=== PATIENT | male | born 1990 | race Caucasian/White ===

== ENCOUNTER 2020-09-22 22:49 | Observation (INO) | payer BC ==
[2020-09-22] MEDS ORDERED: Acetaminophen 500 MG TAB ONE (23:07)
[2020-09-22] MEDS ORDERED: Ibuprofen 800 MG TAB ONE (23:09)
[2020-09-22 23:18] LABS: Mean Corpuscular HGB CONC 35.5 g/dL (32.0-36.0); Mean Corpuscular Hemoglobin 31.1 pg (27.0-31.0); Mean Corpuscular Volume 87.7 fL (78.0-98.0); Platelet Count 194 thou/uL (130-400); RBC Distribution Width 11.6 % (11.5-14.5); Red Blood Cell (RBC) Count 4.82 mill/uL (4.70-6.10); White Blood Cell (WBC) Count 7.1 thou/uL (4.8-10.8)
[2020-09-22 23:39] LABS: Anion Gap 16 mmol/L (10-20); BUN (Urea Nitrogen) 13 mg/dL (8.9-20.6); Calc. Creatinine Clearance 0 mL/min (70-130); Carbon Dioxide 20 mmol/L (22-29); Chloride 98 mmol/L (98-107); Potassium 3.6 mmol/L (3.5-5.1); Sodium 130 mmol/L (136-145)
[2020-09-22 23:40] LABS: ALT (SGPT) 153 U/L (8-55); AST (SGOT) 141 U/L (5-34); Albumin 4.2 g/dL (3.5-5.0); Alkaline Phosphatase 53 U/L (40-110); Bilirubin, Total 0.8 mg/dL (0.2-1.2); Calcium 8.6 mg/dL (7.8-10.44); Globulin 3.1 g/dL (2.4-3.5); Glucose 98 mg/dL (70-105); Protein, Total 7.3 g/dL (6.0-8.3)
[2020-09-22 23:41] LABS: Band 25 % (5-11); Lymphocytes 9 % (21-51); MDiff Complete? YES; Neutrophil 66 % (42-75)
[2020-09-23] MEDS ORDERED: Vancomycin 1 GM/200 ML BAG ONE (00:03)
[2020-09-23] MEDS ORDERED: Cefepime 2 GM VIAL ONE (00:03)
[2020-09-23 02:18] LABS: Lactic Acid 1.5 mmol/L (0.5-2.2)
[2020-09-23] MEDS ORDERED: Ondansetron ODT 4 MG TAB PO PRN (02:22)
[2020-09-23] MEDS ORDERED: Acetaminophen 325 MG TAB PO PRN (02:59)
[2020-09-23 04:05] VITALS: BMI 34.3
[2020-09-23] MEDS: Lactated Ringer's 1,000 ML IV SCH ×3 (04:07→19:45)
[2020-09-23] MEDS: guaiFENesin ER 600 MG TAB PO SCH ×2 (04:07→22:06)
[2020-09-23] MEDS ORDERED: Chloraseptic Spray 180 ml Bottle PO PRN (04:12)
[2020-09-23] MEDS: Ibuprofen 800 MG TAB PO PRN ×2 (05:16→23:03)
[2020-09-23 05:27] LABS: #Lymphocytes 1.2 thou/uL (1.20-3.40); #Monocytes 0.3 thou/uL (0.11-0.59); #Neutrophils 4.4 thou/uL (1.40-6.50); %Eosinophils 0.1 % (0.0-10.0); %Lymphocytes 19.9 % (21.0-51.0); %Monocytes 4.3 % (0.0-10.0); %Neutrophils 75.7 % (42.0-75.0); Hemoglobin 13.6 g/dL (14.0-18.0); Mean Corpuscular HGB CONC 34.8 g/dL (32.0-36.0); Mean Corpuscular Hemoglobin 30.6 pg (27.0-31.0); Mean Platelet Volume 7.7 fL (7.4-10.4); Platelet Count 171 thou/uL (130-400); RBC Distribution Width 11.5 % (11.5-14.5); Red Blood Cell (RBC) Count 4.44 mill/uL (4.70-6.10); White Blood Cell (WBC) Count 5.8 thou/uL (4.8-10.8)
[2020-09-23 05:49] LABS: ALT (SGPT) 135 U/L (8-55); AST (SGOT) 124 U/L (5-34); Albumin 3.6 g/dL (3.5-5.0); Alkaline Phosphatase 44 U/L (40-110); Anion Gap 12 mmol/L (10-20); BUN (Urea Nitrogen) 11 mg/dL (8.9-20.6); Bilirubin, Total 0.8 mg/dL (0.2-1.2); Calc. Creatinine Clearance 155 mL/min (70-130); Calcium 8.1 mg/dL (7.8-10.44); Carbon Dioxide 21 mmol/L (22-29); Chloride 102 mmol/L (98-107); Globulin 2.8 g/dL (2.4-3.5); Glucose 97 mg/dL (70-105); Potassium 3.2 mmol/L (3.5-5.1); Protein, Total 6.4 g/dL (6.0-8.3); Sodium 132 mmol/L (136-145)
[2020-09-23] MEDS: Enoxaparin Sodium 40 MG/0.4 ML SYRINGE SC SCH (08:17)
[2020-09-23] MEDS: Benzonatate 100 MG CAP PO SCH ×3 (08:17→22:06)
[2020-09-23] MEDS: Dexamethasone 4 MG TAB PO SCH (08:17)
[2020-09-23] MEDS ORDERED: Potassium Chloride 20 MEQ TAB PO SCH (08:52)
[2020-09-23] MEDS ORDERED: guaiFENesin/Codeine 200 mg/20 mg 10 ml Cup PO PRN (17:49)
[2020-09-23] MEDS ORDERED: Melatonin 3 MG TAB PO PRN (21:47)
[2020-09-24] MEDS: Lactated Ringer's 1,000 ML IV SCH (03:11)
[2020-09-24 05:41] LABS: #Lymphocytes 0.8 thou/uL (1.20-3.40); #Monocytes 0.3 thou/uL (0.11-0.59); #Neutrophils 4.6 thou/uL (1.40-6.50); %Basophils 0.3 % (0.0-1.0); %Eosinophils 0.2 % (0.0-10.0); %Lymphocytes 14.2 % (21.0-51.0); %Monocytes 5.6 % (0.0-10.0); %Neutrophils 79.6 % (42.0-75.0); Mean Corpuscular HGB CONC 33.7 g/dL (32.0-36.0); Mean Corpuscular Hemoglobin 30.4 pg (27.0-31.0); Mean Corpuscular Volume 90.2 fL (78.0-98.0); Mean Platelet Volume 7.7 fL (7.4-10.4); Platelet Count 199 thou/uL (130-400); RBC Distribution Width 11.9 % (11.5-14.5); Red Blood Cell (RBC) Count 4.62 mill/uL (4.70-6.10); White Blood Cell (WBC) Count 5.8 thou/uL (4.8-10.8)
[2020-09-24 06:05] LABS: ALT (SGPT) 116 U/L (8-55); AST (SGOT) 92 U/L (5-34); Albumin 3.7 g/dL (3.5-5.0); Alkaline Phosphatase 46 U/L (40-110); Anion Gap 11 mmol/L (10-20); BUN (Urea Nitrogen) 9 mg/dL (8.9-20.6); Bilirubin, Total 0.8 mg/dL (0.2-1.2); Calc. Creatinine Clearance 170 mL/min (70-130); Calcium 8.6 mg/dL (7.8-10.44); Carbon Dioxide 25 mmol/L (22-29); Chloride 100 mmol/L (98-107); Globulin 2.9 g/dL (2.4-3.5); Glucose 99 mg/dL (70-105); Potassium 3.7 mmol/L (3.5-5.1); Protein, Total 6.6 g/dL (6.0-8.3); Sodium 132 mmol/L (136-145)
[2020-09-24] MEDS: guaiFENesin ER 600 MG TAB PO SCH (08:19)
[2020-09-24] MEDS: Enoxaparin Sodium 40 MG/0.4 ML SYRINGE SC SCH (08:19)
[2020-09-24] MEDS: Benzonatate 100 MG CAP PO SCH ×2 (08:19→14:00)
[2020-09-24] MEDS: Dexamethasone 4 MG TAB PO SCH (08:19)
[2020-09-24 15:35] VITALS: BP 112/67; TEMP 97.7
== END 2020-09-24 16:40 | disposition home or self-care (01) ==
LOC: ERS 22:49 → 2SW 09-23 00:20
PROVIDERS: ADMIT Student in an Organized Health Care Education/Training Program; ATTEND Student in an Organized Health Care Education/Training Program
DX: A41.89 Other specified sepsis (principal); U07.1 COVID-19; J12.82 Pneumonia due to coronavirus disease 2019; E87.1 Hypo-osmolality and hyponatremia; E87.6 Hypokalemia; R74.01 Elevation of levels of liver transaminase levels; K75.9 Inflammatory liver disease, unspecified
CPT/HCPCS: 36415; 71045; 80053; 83605; 83880; 84145; 85025; 87040; 93005; 96365; 96367; 96372; G0378; J0692; J1650; J3370; J8540